=== PATIENT | male | born 1985 | race American Indian/Alaskan Native ===

== ENCOUNTER 2018-08-17 14:58 | Emergency (ER) | payer SELFPAY ==
[~2018-08-17] VITALS: Ht 182.9 cm; Wt 99.8 kg
[2018-08-17 15:19] VITALS: BP 134/89
== END 2018-08-17 18:33 | disposition left against medical advice (07) ==
LOC: ER 14:58
DX: R22.32 Localized swelling, mass and lump, left upper limb (principal); Z53.21 Procedure and treatment not carried out due to patient leaving prior to being seen by health care provider

== ENCOUNTER 2021-08-27 18:50 | Emergency (ER) | payer MEDICAID ==
[~2021-08-27] VITALS: Ht 182.9 cm; Wt 93.0 kg
[2021-08-27 20:17] VITALS: BP 138/87
[2021-08-27] MEDS ORDERED: METOCLOPRAMIDE HCL 5MG/ml INJ 2ml VIAL IM ONE (23:15)
[2021-08-27] MEDS ORDERED: KETOROLAC TROMETH 60MG/2ML VIAL IM ONE (23:15)
== END 2021-08-27 23:47 | disposition home or self-care (01) ==
LOC: ER 18:50
DX: G43.909 Migraine, unspecified, not intractable, without status migrainosus (principal)
CPT/HCPCS: 96372; 99284; J1885; J2765